=== PATIENT | female | born 1990 | race Caucasian/White ===

== ENCOUNTER 2024-01-28 12:51 | Emergency (ER) | payer MEDICAID ==
[~2024-01-28] VITALS: Ht 170.2 cm; Wt 100.0 kg
[2024-01-28 12:55] VITALS: TEMP 97.7; O2SAT 96
[2024-01-28 14:51] VITALS: BP 140/77; PULSE 80; RESP 18
== END 2024-01-28 14:52 | disposition home or self-care (01) ==
LOC: ER 12:51
DX: S30.810A Abrasion of lower back and pelvis, initial encounter (principal); Y04.0XXA Assault by unarmed brawl or fight, initial encounter; Y93.89 Activity, other specified; Y92.89 Other specified places as the place of occurrence of the external cause; Y99.8 Other external cause status
CPT/HCPCS: 99283

== ENCOUNTER 2024-07-30 06:11 | Emergency (ER) | payer MEDICAID ==
[~2024-07-30] VITALS: Ht 167.6 cm; Wt 85.2 kg
[2024-07-30 06:19] VITALS: BP 177/127; TEMP 97.7; O2SAT 99
[2024-07-30 06:20] VITALS: PULSE 72; RESP 18; O2SAT 97
== END 2024-07-30 07:49 | disposition left against medical advice (07) ==
LOC: ER 06:22
DX: S40.021A Contusion of right upper arm, initial encounter (principal); I10 Essential (primary) hypertension; Y04.0XXA Assault by unarmed brawl or fight, initial encounter; Y93.89 Activity, other specified; Y92.89 Other specified places as the place of occurrence of the external cause; Y99.8 Other external cause status
CPT/HCPCS: 99281

== ENCOUNTER 2024-11-09 13:22 | Emergency (ER) | payer MEDICAID ==
[~2024-11-09] VITALS: Ht 170.2 cm; Wt 91.0 kg
[2024-11-09 13:23] VITALS: BP 134/90; PULSE 100; RESP 16; TEMP 36.7; O2SAT 99
== END 2024-11-09 15:05 | disposition home or self-care (01) ==
LOC: ER 13:22
DX: S40.021A Contusion of right upper arm, initial encounter (principal); S80.12XA Contusion of left lower leg, initial encounter; I10 Essential (primary) hypertension; F31.9 Bipolar disorder, unspecified; W06.XXXA Fall from bed, initial encounter; Y93.89 Activity, other specified; Y92.89 Other specified places as the place of occurrence of the external cause; Y99.8 Other external cause status
CPT/HCPCS: 99283

== ENCOUNTER 2025-02-10 08:01 | Emergency (ER) | payer MEDICAID ==
[~2025-02-10] VITALS: Ht 165.1 cm; Wt 64.0 kg
[2025-02-10 08:03] VITALS: O2SAT 100
[2025-02-10] MEDS: METHOCARBAMOL 500MG TABLET PO ONE (08:35)
[2025-02-10] MEDS: ACETAMINOPHEN 650MG/20.3ML UDC PO ONE (08:35)
[2025-02-10] MEDS ORDERED: METH-653 MT (10:28)
[2025-02-10] MEDS ORDERED: IBUP-2029 MT (10:28)
[2025-02-10] MEDS ORDERED: LIDO700A30 TP (10:31)
[2025-02-10 11:22] VITALS: BP 114/70; PULSE 72; RESP 18; TEMP 37.1; O2SAT 100
== END 2025-02-10 13:33 | disposition home or self-care (01) ==
LOC: ER 08:08
DX: S02.2XXA Fracture of nasal bones, initial encounter for closed fracture (principal); S22.43XA Multiple fractures of ribs, bilateral, initial encounter for closed fracture; I10 Essential (primary) hypertension; F31.9 Bipolar disorder, unspecified; Z79.899 Other long term (current) drug therapy; Y08.89XA Assault by other specified means, initial encounter; Y93.89 Activity, other specified; Y92.89 Other specified places as the place of occurrence of the external cause; Y99.8 Other external cause status
CPT/HCPCS: 70486; 71111; 81025; 99284